=== PATIENT | female | born 1970 | race Caucasian/White ===

== ENCOUNTER 2020-12-21 22:10 | Emergency (ER) | payer OTHER ==
[~2020-12-21] VITALS: Ht 157.5 cm; Wt 68.0 kg
[2020-12-21 22:13] VITALS: Ht 157.5 cm; Wt 68.0 kg
[2020-12-21 22:53] LABS: CALCIUM 8.7 mg/dL (8.5-10.1); CARBON DIOXIDE 23.3 mmol/L (21-32); CHLORIDE SERUM 96 mmol/L (98-107); CREATININE SERUM 0.8 mg/dL (0.6-1.0); GFR1 > 60 mL/min; GLUCOSE SERUM 127 mg/dL (74-106); SODIUM SERUM 133 mmol/L (136-145)
[2020-12-21 22:54] LABS: BASOPHIL % 0.5 % (0.2-1.3); PLATELET COUNT 341 x10^3mcL (179-408); RED CELL DISTRIBUTION WIDTH 13.1 % (12.3-17.7)
[2020-12-21 22:56] LABS: rbc morphology (normal/abnorm) NORMAL (NORMAL)
[2020-12-21 22:58] LABS: ALBUMIN 4.4 g/dL (3.4-5.0); ALKALINE PHOSPHATASE 119 U/L (46-116); ALT/SGPT 42 U/L (14-59); AMYLASE 74 U/L (25-115); AST/SGOT 25 U/L (15-37); BILIRUBIN TOTAL 0.35 mg/dL (0.20-1.00); LIPASE 138 IU/L (73-393); TOTAL PROTEIN, SERUM 8.1 g/dL (6.4-8.2)
[2020-12-22 02:03] VITALS: BP 128/84
== END 2020-12-22 02:03 | disposition home or self-care (01) ==
LOC: ED 22:10
PROVIDERS: Emergency Medicine
DX: F10.129 Alcohol abuse with intoxication, unspecified (principal); E87.6 Hypokalemia; E11.9 Type 2 diabetes mellitus without complications
CPT/HCPCS: 82962; G0480; J2405; J7030